=== PATIENT | female | born 1970 | race Caucasian/White ===

== ENCOUNTER 2018-09-20 14:42 | Outpatient (CLI) | payer BC ==
[~2018-09-20 14:42] MED LIST: iohexol 300mg/ml 100ml inj. ONE
== END 2018-09-20 23:59 | disposition home or self-care (01) ==
LOC: 64 CT 14:42
PROVIDERS: ATTEND Obstetrics & Gynecology
DX: N28.1 Cyst of kidney, acquired (principal); E27.8 Other specified disorders of adrenal gland; K80.20 Calculus of gallbladder without cholecystitis without obstruction; K44.9 Diaphragmatic hernia without obstruction or gangrene; K76.0 Fatty (change of) liver, not elsewhere classified; Z90.710 Acquired absence of both cervix and uterus
CPT/HCPCS: 74178; Q9967